=== PATIENT | female | born 1985 | race Caucasian/White ===

== ENCOUNTER 2018-09-23 09:19 | Emergency (ER) | payer OTHER ==
[2018-09-23 09:27] VITALS: BP 122/79
--- NOTE | 2018-09-23 09:44 | UC ---
General HPI - HPI Summary HPI Summary: 33 yo female presents for complaint of L ankle swelling, progressively worse s/ p bitten by something in [place] short grass day before yesterday. Took a benadryl last night but still swollen and painful, prompting visit here this morning. No fever / chills. No open / draining sores. No other lesions. She is taking pcn d/t wisdom tooth extraction approx 4 days ago. - History of Current Complaint Chief Complaint: UCSkin Stated Complaint: SKIN ISSUE Time Seen by Provider: 09/23/18 09:25 Hx Obtained From: Patient Hx Last Menstrual Period: 08/29/18 Pain Intensity: 5 - Allergy/Home Medications Allergies/Adverse Reactions: Allergies Allergy/AdvReac Type Severity Reaction Status Date / Time ibuprofen Allergy facial Verified 09/23/18 09:28 swelling oseltamivir [From Tamiflu] Allergy Hives Verified 09/23/18 09:28 Sulfa (Sulfonamide Allergy Hives Verified 09/23/18 09:27 Antibiotics) tetrahydrozoline Allergy eyes swell Verified 09/23/18 09:28 [From Visine] Home Medications: Home Medications Penicillin VK 500 MG TAB(NF) 1 tab PO DAILY 09/23/18 [History Confirmed 09/23/18 ] PMH/Surg Hx/FS Hx/Imm Hx Previously Healthy: Yes - Surgical History Surgical History: Yes Surgery Procedure, Year, and Place: lumpectomy benign on left breast - Social History Alcohol Use: Occasionally Substance Use Type: None Smoking Status (MU): Never Smoked Tobacco Review of Systems All Other Systems Reviewed And Are Negative: Yes Constitutional: Positive: Other - see hpi Skin: Positive: Other - see hpi Eyes: Positive: Negative ENT: Positive: Other - see hpi Respiratory: Positive: Negative Cardiovascular: Positive: Negative Gastrointestinal: Positive: Negative Genitourinary: Positive: Negative Motor: Positive: Negative Neurovascular: Positive: Negative Musculoskeletal: Positive: Other: Neurological: Positive: Negative Psychological: Positive: Negative Is Patient Immunocompromised?: No Physical Exam Triage Information Reviewed: Yes Appearance: Well-Appearing, Well-Nourished Vital Signs: Initial Vital Signs Temp 98.2 F 09/23/18 09:24 Pulse 75 09/23/18 09:24 Resp 17 09/23/18 09:24 BP 122/79 09/23/18 09:24 Pulse Ox 100 09/23/18 09:24 Vital Signs Reviewed: Yes Eye Exam: Normal - grossly nonfocal ENT Exam: Other - L cheek a little swollen, c/w wisdom tooth extraction. Not cellulitic. Detailed dental exam not done. Neck exam: Normal Respiratory Exam: Normal - RR normal, no tachypnea, no dyspnea Cardiovascular Exam: Normal - HR normal, nondiaphoretic. Abdominal Exam: Normal - grossly benign, sitting up Musculoskeletal Exam: Other - BLE + mild varicosities. Dry skin. Both feet wtt with good pulses and good cap refill. L lat foot / lat mal area with + redness, puffiness. + blanching with pressure. No fluctuance. Neurological Exam: Normal Psychological Exam: Normal Skin Exam: Other - see [facility] [place] sk exam Course/Dx - Course Course Of Treatment: S/sx c/w bite, consider arachnid variant. C/o r/o insect either. D/w pt. C/w allergic rather than cellulitic. Reviewed coa / tx plan. She is dealing with several medical issues now, will f/u with providers accordingly. Taking pcn re wisdom tooth extraction. Encouraged compression / elevation. Questions as posed ansswered to the best of my ability. - Diagnoses Provider Diagnosis: Bite Discharge - Sign-Out/Discharge Documenting (check all that apply): Patient Departure All imaging exams completed and their final reports reviewed: No Studies - Discharge Plan Condition: Stable Disposition: HOME Prescriptions: predniSONE TAB* [Deltasone 10 MG TAB*] 10 mg PO DAILY #11 tab Patient Education Materials: Antihistamine (By mouth), Insect Bite or Sting (ED ) Referrals: Natanael Gan MD [Primary Care Provider] - Additional Instructions: ELEVATE YOUR LEGS as much as possible. Compression sock / stockings (mild - medium compression, above the calf / below the knee) - during the day as much as possible. Avoid astringents. Please seek medical attention for worse or new problems. Follow up with your upcoming medical providers as scheduled. - Billing Disposition and Condition Condition: STABLE Disposition: Home
== END 2018-09-23 09:52 | disposition home or self-care (01) ==
LOC: UCEAST 09:19
DX: S90.562A Insect bite (nonvenomous), left ankle, initial encounter (principal); W57.XXXA Bitten or stung by nonvenomous insect and other nonvenomous arthropods, initial encounter; Y92.9 Unspecified place or not applicable; Z88.2 Allergy status to sulfonamides
CPT/HCPCS: 99212; G0463

== ENCOUNTER 2020-12-31 09:56 | Inpatient (IN) ==
[2020-12-31] MEDS ORDERED: Buffered Lidocaine 1% SYRIN 1 ml INTRADERM ONE (10:58)
[2020-12-31] MEDS ORDERED: Lactated Ringers 1000 ml BAG 1,000 ML IV ONE (10:58)
[2020-12-31 11:59] LABS: Rapid COVID-19 Molecular Undetected (Undetected)
[2020-12-31 12:26] LABS: Urine Benzodiazepine Screen None Detected (None Detect); Urine Cannabinoids Screen None Detected (None Detect); Urine Opiates Screen None Detected (None Detect)
[2021-01-01] MEDS: ARMOUR THYROID 30 MG PO SCH (07:01)
[2021-01-01] MEDS ORDERED: Lidocaine 1% MPF 5 ML VIAL ONE (13:19)
[2021-01-01] MEDS ORDERED: Buffered Lidocaine 1% SYRIN 1 ml INTRADERM ONE (13:20)
[2021-01-01 13:52] LABS: ABS Basophils 0.1 10^3/ul (0-0.2); ABS Eosinophils 0.1 10^3/ul (0-0.6); ABS Lymphocytes 2.2 10^3/ul (1.0-4.8); ABS Monocytes 0.8 10^3/ul (0-0.8); ABS Neutrophils 7.5 10^3/ul (1.5-7.7); Eosinophil % 0.9 %; Hematocrit 36 % (35-47); Hemoglobin 12.5 g/dL (12.0-16.0); Mean Corpuscular HGB Conc 35 g/dL (31-36); Mean Corpuscular Hemoglobin 32 pg (27-31); Mean Corpuscular Volume 91 fL (80-97); Mean Platelet Volume 10.2 fL (7.4-10.4); Platelet Count 222 10^3/uL (150-450); Red Blood Count 3.94 10^6 /uL (3.70-4.87); Red Cell Distribution Width 13 % (10-15); White Blood Count 10.7 10^3/uL (3.5-10.8)
[2021-01-01 14:06] LABS: Albumin 3.5 g/dL (3.2-5.2); Albumin/Globulin Ratio 1.1 (1-3); Calcium 8.8 mg/dL (8.6-10.3); EGFR African American 165.1 (>60); EGFR Non-African American 136.5 (>60); Globulin 3.3 g/dL (2-4); Potassium 3.8 mmol/L (3.5-5.0); Total Bilirubin 0.5 mg/dL (0.2-1.0); Total Protein 6.8 g/dL (6.4-8.9); Uric Acid 4.5 mg/dL (2.3-6.6)
[2021-01-01] MEDS ORDERED: Oxytocin in LR 20 UNITS/1,000 ML BAG IVPB SCH (18:00)
[2021-01-01] MEDS ORDERED: Morphine 10 MG/ML VIAL (1 ml) IV PRN (23:35)
[2021-01-01] MEDS ORDERED: Promethazine INJ(RESTRICTED) 25 MG/ML 1 ml VIAL IV PRN (23:35)
[2021-01-02] MEDS: ARMOUR THYROID 30 MG PO SCH (06:59)
[2021-01-02] MEDS ORDERED: OBEPIDURAL 250 ML EPIDURAL ONE (17:00)
[2021-01-02] MEDS: Lactated Ringers 1000 ml BAG 1,000 ML IV SCH ×2 (17:10→17:47)
[2021-01-02] MEDS ORDERED: Sodium Citrate/Citric Acid LIQ 15 ML UDC PO PRN (17:58)
[2021-01-02] MEDS ORDERED: Phenylephrine 40 mcg/mL 10mL (400mcg) SYRINGE IV PUSH PRN ×2 (17:58)
[2021-01-02] MEDS ORDERED: EPHEDrine (Pressors) 50 MG/ML VIAL IV PUSH PRN ×2 (17:58)
[2021-01-02] MEDS ORDERED: Lactated Ringers 1000 ml BAG 1,000 ML IV ONE (17:58)
[2021-01-02] MEDS ORDERED: Lactated Ringers 1000 ml BAG 1,000 ML IV SCH ×2 (18:00→23:00)
[2021-01-02 18:55] LABS: Urine Appearance Clear; Urine Bilirubin Negative (Negative); Urine Blood Negative (Negative); Urine Color Yellow; Urine Glucose Negative (Negative); Urine Ketones 2+ (Negative); Urine Nitrite Negative (Negative); Urine Protein 1+(30 mg/dL) (Negative); Urine Specific Gravity 1.018 (1.002-1.030); Urine Urobilinogen Negative (Negative)
[2021-01-02 19:08] LABS: Urine Bacteria Absent (Absent); Urine Red Blood Cell Absent (Absent); Urine Squamous Epithelial Cell Present (Absent); Urine White Blood Cell Absent (Absent)
[2021-01-02] MEDS ORDERED: Oxytocin in LR 20 UNITS/1,000 ML BAG IVPB SCH (21:15)
[2021-01-02] MEDS ORDERED: Dibucaine 1% OINT 28.35 GM TUBE PR PRN (22:17)
[2021-01-02] MEDS ORDERED: Witch Hazel PAD JAR TOPICAL PRN (22:17)
[2021-01-03] MEDS: ARMOUR THYROID 30 MG PO SCH (05:45)
[2021-01-03 07:09] LABS: ABS Eosinophils 0.1 10^3/ul (0-0.6); ABS Lymphocytes 2.9 10^3/ul (1.0-4.8); ABS Monocytes 1.1 10^3/ul (0-0.8); ABS Neutrophils 10.8 10^3/ul (1.5-7.7); Eosinophil % 0.4 %; Hematocrit 25 % (35-47); Hemoglobin 8.6 g/dL (12.0-16.0); Lymphocyte % 19.4 %; Mean Corpuscular HGB Conc 35 g/dL (31-36); Mean Corpuscular Hemoglobin 31 pg (27-31); Mean Corpuscular Volume 90 fL (80-97); Platelet Count 168 10^3/uL (150-450); Red Blood Count 2.76 10^6 /uL (3.70-4.87); Red Cell Distribution Width 13 % (10-15); White Blood Count 14.9 10^3/uL (3.5-10.8)
[2021-01-03] MEDS ORDERED: NS 0.9% 500 ml BAG 500 ML IV ONE (12:11)
[2021-01-03 13:44] LABS: Calcium 8.3 mg/dL (8.6-10.3)
[2021-01-03] MEDS ORDERED: Benzocaine/Menthol LOZ PO PRN (14:36)
[2021-01-04] MEDS: ARMOUR THYROID 30 MG PO SCH (06:00)
[2021-01-04] MEDS: OBEPIDURAL 250 ML EPIDURAL SCH (07:33)
[2021-01-04 08:29] VITALS: BP 110/67
== END 2021-01-04 12:15 | disposition home or self-care (01) | DRG 806 ==
LOC: MCHOBOUT 09:56 → MCHOB 10:54
PROVIDERS: ADMIT Midwife; ATTEND Midwife